=== PATIENT | female | born 1985 | race Caucasian/White ===

== ENCOUNTER → 2017-03-26 | Outpatient (CLI) | payer OTHER ==
[2016-07-24 04:32] VITALS: BP 130/72
[2017-03-31 17:14] LABS: HEP B SURFACE ABDY Reactive (.)
== END | disposition home or self-care (01) ==
LOC: LAB 05:50
PROVIDERS: ATTEND Emergency Medicine
DX: B19.10 Unspecified viral hepatitis B without hepatic coma (principal)
CPT/HCPCS: 86706

== ENCOUNTER → 2017-04-08 | Outpatient (CLI) | payer OTHER ==
[2016-07-24 04:32] VITALS: BP 130/72
== END | disposition home or self-care (01) ==
LOC: LAB 01:01
PROVIDERS: ATTEND Family Medicine
DX: Z01.84 Encounter for antibody response examination (principal)
CPT/HCPCS: 36415; 86481